=== PATIENT | male | born 1965 | race Caucasian/White ===

== ENCOUNTER 2021-04-23 02:25 | Outpatient (CLI) | payer BC, SELFPAY ==
[2021-04-27 13:42] LABS: Free PSA/PSA Ratio 0.16 ratio
== END 2021-04-23 02:26 | disposition home or self-care (01) ==
LOC: LBO 02:25
PROVIDERS: PCP Internal Medicine; Visit Provider Urology
DX: R97.20 Elevated prostate specific antigen [PSA] (principal)
CPT/HCPCS: 36415; 84154

== ENCOUNTER 2021-11-25 02:58 | Outpatient (CLI) | payer BC, SELFPAY ==
[2021-11-25 20:04] LABS: PSA, Diagnostic 4.6 ng/mL (0.0-3.5)
== END 2021-11-25 02:59 | disposition home or self-care (01) ==
LOC: LBO 02:58
PROVIDERS: PCP Internal Medicine; Visit Provider Urology
DX: R97.20 Elevated prostate specific antigen [PSA] (principal)
CPT/HCPCS: 36415; 84153

== ENCOUNTER 2022-05-24 14:36 | Outpatient (CLI) | payer BC, SELFPAY ==
[2022-05-26 16:01] LABS: Free PSA/PSA Ratio 0.14 ratio
== END 2022-05-24 14:37 | disposition home or self-care (01) ==
LOC: LBO 14:40
PROVIDERS: PCP Internal Medicine; Visit Provider Urology
DX: R97.20 Elevated prostate specific antigen [PSA] (principal)
CPT/HCPCS: 36415; 84154

== ENCOUNTER 2022-08-25 02:58 | Outpatient (CLI) | payer BC, SELFPAY ==
[2022-08-29 14:29] LABS: Free PSA/PSA Ratio 0.13 ratio
== END 2022-08-25 02:59 | disposition home or self-care (01) ==
LOC: LBO 02:58
PROVIDERS: PCP Internal Medicine; Visit Provider Urology
DX: R97.20 Elevated prostate specific antigen [PSA] (principal)
CPT/HCPCS: 36415; 84154

== ENCOUNTER 2023-03-08 03:24 | Outpatient (CLI) | payer BC, SELFPAY | END 2023-03-08 03:25 | disposition home or self-care (01) | PROVIDERS: PCP Internal Medicine; Visit Provider Family Medicine | DX: R97.20 Elevated prostate specific antigen [PSA] (principal) | CPT/HCPCS: 36415; 84154 ==

== ENCOUNTER 2023-06-29 14:50 | Outpatient (REF) | payer BC, SELFPAY ==
[2023-06-29 15:36] LABS: Source Nasal/Nares
[2023-06-29 17:21] LABS: COVID-19 PCR Negative (Negative)
== END 2023-06-29 14:51 | disposition home or self-care (01) ==
LOC: LBN 14:50
PROVIDERS: PCP Internal Medicine; Visit Provider Physician Assistant Medical
DX: J02.9 Acute pharyngitis, unspecified (principal); Z20.822 Contact with and (suspected) exposure to COVID-19
CPT/HCPCS: 87635; 87070

== ENCOUNTER → 2024-03-06 01:49 | Outpatient (CLI) | payer BC, SELFPAY ==
--- NOTE | 2024-03-06 08:40 | DI.RAD_ITS ---
Exam(s) XR HAND LT COMPLETE EXAM: XR HAND LT COMPLETE CLINICAL HISTORY: INJURY,S69.92XS,PUNCTURE WOUND,? FOREIGN BODY IN FATTY PORTION BASE OF THUM. TECHNIQUE: 2D digital imaging was performed of the left hand. Three views were obtained. AP, later al and oblique views were obtained. COMPARISON: No priors for comparison. FINDINGS: BONES: No acute fracture is present. No bony destructive lesion is seen. There is a chronic deformity seen in the proximal 2nd metacarpal bone which appears old. JOINTS: No dislocation present. Degenerative changes are seen in the hand and wrist characterized by joint space narrowing and osteophytes. SOFT TISSUE: There is a 1.3 mm density in the subcutaneous tissues between the thumb and the index fi nger. This may represent a loose body. It is best appreciated on the series 2, image 1 and series 1 , image 1. IMPRESSION: 1.3 mm density in the subcutaneous tissues between the thumb and index finger which may represent a l oose body. DATA REPOSITORY: RADIATION DOSE DELIVERED:
== END ==
PROVIDERS: Visit Provider Family Medicine
DX: S69.92XD Unspecified injury of left wrist, hand and finger(s), subsequent encounter (principal); X58.XXXD Exposure to other specified factors, subsequent encounter
CPT/HCPCS: 73130

== ENCOUNTER 2024-06-11 02:06 | Outpatient (CLI) | payer BC, SELFPAY ==
[2024-06-11 19:45] LABS: PSA, Diagnostic 5.3 ng/mL (<=3.5)
== END 2024-06-11 02:07 | disposition home or self-care (01) ==
LOC: LBO 02:07
PROVIDERS: Visit Provider Urology
DX: Z12.5 Encounter for screening for malignant neoplasm of prostate (principal)
CPT/HCPCS: 36415; 84153

== ENCOUNTER 2024-06-20 04:39 | Outpatient (CLI) | payer BC, SELFPAY ==
[2024-06-20 14:22] LABS: Abs Immature Grans 0.03 10^3/uL (0.0-0.06); Absolute Basophil Count 0.04 10^3/uL (0.0-0.2); Absolute Eosinophil Count 0.19 10^3/uL (0.0-0.7); Absolute Lymphocyte Count 1.42 10^3/uL (1.2-3.4); Absolute Neutrophil Count 4.88 10^3/uL (1.2-6.7); Basophils % 0.6 %; Eosinophils % 2.7 %; HCT 40.9 % (40.0-50.0); HGB 14.8 g/dL (13.5-17.5); Immature Grans % 0.4 %; Lymphocytes % 20.1 %; MCH 30.9 pg (27.0-33.0); MCHC 36.2 % (32.0-36.0); MCV 85 fL (80-95); MPV 11.3 fL (8.0-11.0); Monocytes % 7.1 %; Neutrophils % 69.1 %; Platelet Count 159 10^3/uL (130-400); RBC 4.79 10^6/uL (4.36-5.78); RDW-SD 37.5 fL; WBC 7.06 10^3/uL (4.4-10.8)
[2024-06-20 15:15] LABS: ALT 32 U/L (16-63); AST 15 U/L (15-37); Albumin 3.8 g/dL (3.4-5.0); Alkaline Phosphatase 43 U/L (46-116); Anion Gap 8.8 mmol/L (3-11); BUN 11 mg/dL (7-18); Bilirubin, Total 0.37 mg/dL (0.2-1.0); CO2 25.2 mmol/L (21.0-32.0); CREATININE 1.2 mg/dL (0.70-1.30); Calcium 9.2 mg/dL (8.5-10.1); Chloride 104 mmol/L (98-107); Glucose 153 mg/dL (74-106); Potassium 3.8 mmol/L (3.5-5.1); Sodium 138 mmol/L (136-145); TSH (W/Ref FT4) 1.46 uIU/mL (0.36-3.74); Total Protein 7.1 g/dL (6.4-8.2)
[2024-06-20 15:16] LABS: C-Reactive Protein < 0.50 mg/dL (<or=0.5)
[2024-06-20 23:48] LABS: HIV-1/2 Ag & Ab Screen Negative (Negative)
[2024-06-21 09:30] LABS: Hepatitis C Ab w Rflx HCV PCR Negative (Negative)
[2024-06-24 12:57] LABS: HIV 1 RNA Qualitative Undetected Copys/mL (Undetected)
[2024-06-24 13:47] LABS: TB Interpretation Negative (Negative); TB1 Ag minus Nil 0.01 IU/ml
[2024-06-25 13:40] LABS: Testosterone, Total 226 ng/dL (240-950)
== END 2024-06-20 04:40 | disposition home or self-care (01) ==
PROVIDERS: Urology; Visit Provider Family Medicine
DX: R61 Generalized hyperhidrosis (principal)
CPT/HCPCS: 36415; 80053; 84403; 86803; 87389; 87536; 84443; 85025; 86140; 86480

== ENCOUNTER 2024-07-15 03:09 | Outpatient (CLI) | payer BC, SELFPAY ==
[2024-07-15 09:05] LABS: Hemoglobin A1C 5.4 % (<5.7)
[2024-07-15 09:23] LABS: Calculated LDL 92 mg/dL (<100); Cholesterol 182 mg/dL (<200); HDL Cholesterol 58 mg/dL (40-60); Triglyceride 161 mg/dL (<150)
[2024-07-17 12:07] LABS: TB Interpretation Negative (Negative); TB1 Ag minus Nil 0.02 IU/ml
[2024-07-22 17:44] LABS: Testosterone, Total 261 ng/dL (240-950)
== END 2024-07-15 03:10 | disposition home or self-care (01) ==
LOC: LBO 03:10
PROVIDERS: Family Medicine; Visit Provider Urology
DX: Z13.6 Encounter for screening for cardiovascular disorders (principal); R73.9 Hyperglycemia, unspecified; R61 Generalized hyperhidrosis; R68.82 Decreased libido
CPT/HCPCS: 36415; 80061; 84402; 84403; 83036; 86480

== ENCOUNTER 2024-09-24 02:30 | Outpatient (CLI) | payer BC, SELFPAY ==
[2024-09-29 15:06] LABS: Testosterone, Total 212 ng/dL (240-950)
== END 2024-09-24 02:31 | disposition home or self-care (01) ==
LOC: LBO 02:30
PROVIDERS: Visit Provider Urology
DX: E29.1 Testicular hypofunction (principal)
CPT/HCPCS: 36415; 84403

== ENCOUNTER 2024-10-28 04:08 | Outpatient (CLI) | payer BC, SELFPAY ==
[2024-11-01 02:37] LABS: Testosterone, Total 644 ng/dL (240-950)
== END 2024-10-28 04:09 | disposition home or self-care (01) ==
LOC: LBO 04:08
PROVIDERS: Visit Provider Urology
DX: E29.1 Testicular hypofunction (principal)
CPT/HCPCS: 36415; 84403

== ENCOUNTER 2024-10-31 16:08 | Outpatient (REF) | payer BC, SELFPAY ==
[2024-10-31 16:23] LABS: HCT 47.6 % (40.0-50.0); HGB 16.8 g/dL (13.5-17.5); MCH 30.4 pg (27.0-33.0); MCHC 35.3 % (32.0-36.0); MCV 86 fL (80-95); MPV 11.4 fL (8.0-11.0); Platelet Count 193 10^3/uL (130-400); RBC 5.52 10^6/uL (4.36-5.78); RDW 12.3 % (11.8-14.1); RDW-SD 38.4 fL; WBC 6.77 10^3/uL (4.4-10.8)
[2024-10-31 16:37] LABS: Anion Gap 9.7 mmol/L (3-11); BUN 17 mg/dL (7-18); CO2 25.3 mmol/L (21.0-32.0); CREATININE 1.2 mg/dL (0.70-1.30); Calcium 9.6 mg/dL (8.5-10.1); Chloride 106 mmol/L (98-107); Glucose 95 mg/dL (74-106); Potassium 4.4 mmol/L (3.5-5.1); Sodium 141 mmol/L (136-145)
== END 2024-10-31 16:09 | disposition home or self-care (01) ==
LOC: NCHCN 16:08
PROVIDERS: Visit Provider Family Medicine
DX: Z01.818 Encounter for other preprocedural examination (principal)
CPT/HCPCS: 80048; 85027

== ENCOUNTER 2025-06-25 12:56 | Outpatient (CLI) | payer BC, SELFPAY ==
[2025-06-25 12:35] LABS: HCT 47.2 % (40.0-50.0)
[2025-06-25 22:34] LABS: PSA, Screening 6.3 ng/mL (<=3.5)
== END 2025-06-25 12:57 | disposition home or self-care (01) ==
LOC: LBO 12:58
PROVIDERS: PCP Family Medicine; Visit Provider Urology
DX: E29.1 Testicular hypofunction (principal); Z12.5 Encounter for screening for malignant neoplasm of prostate
CPT/HCPCS: 36415; 84153; 84403; 85014

== ENCOUNTER 2025-08-19 01:18 | Outpatient (CLI) | payer BC, SELFPAY ==
[2025-08-19 17:28] LABS: PSA, Diagnostic 6.3 ng/mL (<=3.5)
== END 2025-08-19 01:19 | disposition home or self-care (01) ==
LOC: LBO 01:18
PROVIDERS: PCP Family Medicine; Visit Provider Urology
DX: R97.20 Elevated prostate specific antigen [PSA] (principal)
CPT/HCPCS: 36415; 84153